=== PATIENT | male | born 1985 | race Caucasian/White ===

== ENCOUNTER 2024-04-05 07:34 | Emergency (ER) | payer OTHER, SELFPAY ==
[2024-04-05 07:35] VITALS: BP 134/93; PULSE 78; RESP 16; TEMP 35.7; O2SAT 97; BMI 23.0
--- NOTE | 2024-04-05 07:53 | ED.VIS.GI ---
HPI HPI - GI History of Present Illness Chief Complaint: Abd Pain Informant: patient Abdominal Pain/Flank Pain Onset: Days (4) Context: Gradual Onset Timing: Continuous Quality: Cramping and Sharp Location: RLQ and LLQ Worsened by: Nothing Relieved by: Nothing Nausea/Vomiting/Emesis GI Symptom: Positive for Nausea; Negative for Vomiting Diarrhea/Melena/Hematochezia GI Symptom: Positive for Diarrhea; Negative for Melena or Hematochezia Associated Symptoms Associated Symptoms: Negative for Dysuria or Frequency Narrative Narrative: Patient presents with abdominal pain and nausea that has been getting worse over the past 4 days. Patient states his came on gradually. Patient states it has been constant. Patient states the pain is mainly over the lower abdomen but worse on the right. Patient states she did take some Zofran which helped with the nausea. Patient states nothing makes the pain better nothing makes it worse. Patient describes the pain as sharp with occasional cramping at times. Patient denies any vomiting. Patient admits to some diarrhea but denies any melena or hematochezia. Patient denies any dysuria or frequency. Patient states his urine is dark and he does not know if he has hematuria. PFSH PFSH Medical History no medical history no medical history Allergy/AdvReac Type Severity Reaction Status Date / Time Penicillins Allergy Intermediate Hives Verified 04/05/24 07:36 Surgical History (Updated 04/05/24 @ 07:[address] Ambrose Villarreal DO) Hx of wisdom tooth extraction Surgical History no surgical history Social History Smoking Status: Never smoker ROS ROS ED Constitutional Constitutional ED: Reports chills; Denies fever(s) Eyes Eyes: Denies blurry vision or change in vision ENT ENT ED: Denies rhinorrhea or sore throat Cardiovascular Cardiovascular: Denies chest pain or palpitations Respiratory/Chest Respiratory/Chest: Denies cough or dyspnea Gastrointestinal Gastrointestinal: Reports abdominal pain and nausea; Denies vomiting Genitourinary Genitourinary ED: Denies dysuria or hematuria Musculoskeletal Musculoskeletal: Reports back pain; Denies neck pain Integumentary Denies abscess or rash Neurologic Neurologic: Reports headache(s); Denies weakness Allergic/Immunologic Allergic/Immunologic ED: Denies mouth swelling or urticaria EXAM Physical Exam Const Vital Signs: 04/05/24 07:35 04/05/24 09:35 Temperature 96.3 F L Temperature Source Temporal Pulse Rate 78 74 Respiratory Rate 16 16 Blood Pressure 134/93 H 128/74 H Blood Pressure Mean 106 92 Pulse Ox 97 99 Oxygen Delivery Method Room Air Room Air Positive well nourished and well developed General Appearance ED: well developed and NAD HEENT Reports moist mucous membranes normocephalic and atraumatic Neck supple and no JVD Resp normal respiratory effort and clear to auscultation bilaterally Cardio regular rate and regular rhythm GI non-distended Palpation: soft and tender epigastric (Mild), LLQ, RLQ, LUQ (Mild), RUQ (Mild), McBurney's point, periumbilical, suprapubic and Obturator sign; Negative for guarding or rebound tenderness present Extremity full ROM General Extremety ED: Negative for edema or tenderness General Extremity: Negative for edema Neuro CN's II-XII intact bilaterally, moves all extremities and no sensory deficits noted Sensorium / Orientation: alert Psych mental status grossly normal MDM MDM MDM Narrative Medical decision making narrative: Differential diagnosis includes appendicitis, ureteral calculus, gastroenteritis, pyelonephritis, urinary tract infection, and mesenteric adenitis. CBC will be obtained to assess for leukocytosis and anemia. Basic metabolic profile will be obtained to assess for electrolyte abnormality and renal function. Urinalysis will be obtained to assess for urinary tract infection and hematuria. CT scan of the abdomen pelvis will be obtained to assess for ureteral calculus, appendicitis, and bowel perforation. Lab Data Attestation: I reviewed the patient's lab results. Lab results narrative: CBC was reviewed and was within normal limits. Basic metabolic profile was reviewed and was within normal limits. Urinalysis was reviewed. There is no evidence of urinary tract infection or hematuria. Labs: Laboratory Results - last 24 hr 04/05/24 04/05/24 07:40 08:06 WBC 8.7 RBC 5.63 Hgb 15.9 Hct 46.9 MCV 83.3 MCH 28.2 MCHC 33.9 RDW Std Deviation 36.4 RDW Coeff of Jenaro 11.9 Plt Count 285 MPV 10.6 Immature Gran % (Auto) 0.500 Neut % (Auto) 68.5 Lymph % (Auto) 23.1 [place] % (Auto) 6.2 Eos % (Auto) 1.1 Baso % (Auto) 0.6 Absolute Neuts (auto) 6.0 Absolute Lymphs (auto) 2.01 Nucleated RBC % 0 Sodium 138 Potassium 4.0 Chloride 106 Carbon Dioxide 26.0 Anion Gap 6 BUN 13 Creatinine 0.89 Estim Creat Clear Calc 117.16 Est GFR (MDRD) Af Amer 123 Est GFR (MDRD) Non-Af 102 BUN/Creatinine Ratio 14.6 Glucose 106 Calcium 9.1 Urine Color Yellow Urine Clarity Clear Urine pH 7.0 Ur Specific [place] 1.010 Urine Protein 30 H Urine Glucose (UA) Normal Urine Ketones Negative Urine Occult Blood Negative Urine Nitrite Negative Urine Bilirubin Negative Urine Urobilinogen 1 H Ur Leukocyte Esterase 25 H Urine RBC 0 SEEN Urine WBC 0-5 SEEN Ur Squamous Epith Cells 0 SEEN Urine Bacteria 0 SEEN Urine Mucus 0 SEEN Radiography Diagnostic Testing: Clinical Impression(s) from Imaging Studies Abdomen/Pelvis CT 04/05/24 08:00 IMPRESSION: Moderate amount of fecal material is seen in the rectosigmoid colon. Mild left hydronephrosis although no obstructive uropathy is seen at this time. Electronically Signed: Maciel Capps MD at 10:29 EDT , CT scan of the abdomen pelvis was obtained. There is moderate amount of stool in the rectosigmoid colon. There is mild left hydronephrosis. There is no obstructive uropathy noted. There is no hydronephrosis on the right. This was interpreted by the radiologist and was also independently reviewed by myself. Additional Tests and Interventions Additional Tests or Interventions: Patient was given IV fluids, morphine, and Zofran. Patient was feeling better on reevaluation. Patient was advised of his findings. Patient was instructed use [id number] laxatives as needed for constipation. Patient was instructed to follow-up with his primary care physician in 5 to 7 days. Patient was instructed to return if worse in any way. Patient understood and was agreeable with the plan. All questions were answered. Discharge Plan Triage Chief Complaint: Abd Pain ED Provider: Ambrose Villarreal Dx/Rx/DC Orders Clinical Impression: Abdominal pain of unknown etiology, Constipation Instructions: ED Constipation (Adult), ED Abdominal Pain Unkn Cause Male... Primary Care Provider: Wes Gorman Referrals: NOT,DEFINED [Non-Staff] - Wes Gorman [Primary Care Provider] - 5-7 Days Print Language: Nigerian Disposition Disposition: Home, Self Care
--- NOTE | 2024-04-05 08:00 | CT_ITS ---
STUDY: CT ABDOMEN AND PELVIS WITH CONTRAST REASON FOR EXAM: Male, 38 years old. Back pain and abdominal pain. Nausea. RADIATION DOSAGE (If Supplied By Facility): CTDIvol = ( 14.6 ) mGy, DLP = ( 667.21 ) mGycm TECHNIQUE: Transaxial images were obtained from the dome of the diaphragm to the symphysis pubis with oral contrast. Oral and amp; IV Gastrografin and amp; 100mL Isovue-300 was administered. Sagittal and coronal images were reconstructed. Individualized dose optimization techniques were used for this CT. COMPARISON: None. FINDINGS: Minimal degree of left basilar atelectasis. The visualized portions of the heart are within normal limits. Normal liver. Normal gallbladder and extrahepatic biliary system. Normal spleen. Normal pancreas. Normal bilateral adrenal glands. Normal right kidney. Minimal degree of left hydronephrosis. No obstructive uropathy is seen at this time. Normal visualized stomach. Normal small intestine. Moderate amount of fecal material is seen in the rectosigmoid colon. The appendix is visualized and appears normal. Normal abdominal aorta. Normal inferior vena cava. Normal retroperitoneum. Normal urinary bladder. There is evidence of calcifications in the central portion of the prostate. Calcified phleboliths are seen in the pelvis. Normal abdominal wall. Normal osseous structures. CT/Abdomen/Pelvis WITH Contrast IMPRESSION: Moderate amount of fecal material is seen in the rectosigmoid colon. Mild left hydronephrosis although no obstructive uropathy is seen at this time. Electronically Signed: Maciel Capps MD at 10:29 EDT ,
[2024-04-05] MEDS: Morphine 4 MG/ML Syringe IV (08:11)
[2024-04-05] MEDS: Ondansetron 4 MG/2 ML Vial IV (08:11)
[2024-04-05] MEDS: 0.9% Normal Saline (1000mL) 1,000 ML 999 ML IV (08:12)
[2024-04-05 08:14] LABS: Bacteria 0 SEEN /hpf (None Seen); Mucous, Urine 0 SEEN /hpf (<or=2+); Red Blood Cells-Urine 0 SEEN /hpf (0-5); Squamous Epithelial Cells - UA 0 SEEN /hpf (0-5)
[2024-04-05 08:15] LABS: Color, Urine Yellow (Yellow); Glucose, Dipstick Normal (Normal); Ketone-Dipstick Negative (Negative); Leukocyte Esterase-Dipstick 25 /ul (Negative); Nitrite-Dipstick Negative (Negative); Occult Blood-Urine Negative /ul (Negative); Protein-Dipstick 30 mg/dl (Negative); Urine Bilirubin Dipstick Negative (Negative); Urine Clarity Clear (Clear); Urine Urobilinogen 1 mg/dl (Normal)
[2024-04-05 08:16] LABS: Absolute Lymphocyte Count 2.01 X10^3/uL (0.83-4.51); Basophil# 0.05 X10^3/uL; Basophil% 0.6 % (0-1); Eosinophils% 1.1 % (0-5); Hematocrit 46.9 % (40-54); Hemoglobin 15.9 g/dL (13.0-16.5); Lymphocyte # 2.01 X10^3/ul (0.83-4.51); Lymphocyte % 23.1 % (19-41); Mean Corp Hgb Conc 33.9 g/dL (32-36); Mean Corpuscular Hgb 28.2 pg (27.0-32.0); Mean Corpuscular Volume 83.3 fL (80-94); Mean Platelet Vol. 10.6 fl (6.2-12.0); Monocyte# 0.54 X10^3/uL; Monocyte% 6.2 % (0-10); NRBC Flagged by Analyzer 0 % (0-5); Neutrophil # 5.97 X10^3/uL (2.7-7.7); Neutrophil % 68.5 % (47-70); Platelet Count 285 K/mm3 (150-450); RBC Distribution Width CV 11.9 % (11.6-14.6); RBC Distribution Width SD 36.4 fl (35.1-43.9); Red Blood Count 5.63 M/mm3 (4.6-6.2); White Blood Count 8.7 K/mm3 (4.4-11.0)
[2024-04-05 08:25] LABS: White Blood Cells 0-5 SEEN /hpf (0-5)
[2024-04-05 08:29] LABS: Anion Gap 6 (5-15); BUN 13 mg/dL (7-18); BUN/Creat Ratio 14.6 RATIO (10-20); Calcium,Total 9.1 mg/dL (8.5-10.1); Chloride 106 mmol/L (98-107); Creatinine, Serum 0.89 mg/dL (0.70-1.30); EST Glomerular Filtration Rate 102 mL/min (>60); Est Glom Filt Rate - Afr Amer 123 mL/min (>60); Estimated Creatinine Clearance 117.16 ml/min; Glucose 106 mg/dL (74-106); Sodium Level 138 mmol/L (136-145)
[2024-04-05 09:35] VITALS: BP 128/74; PULSE 74; RESP 16; O2SAT 99
[2024-04-05 11:00] VITALS: BP 122/78; PULSE 64; RESP 18; O2SAT 100
== END 2024-04-05 11:23 | disposition home or self-care (01) ==
PROVIDERS: Emergency Provider Emergency Medicine; PCP Family Medicine; Visit Provider Emergency Medicine
DX: R10.9 Unspecified abdominal pain (principal); R19.7 Diarrhea, unspecified; R11.0 Nausea; K59.00 Constipation, unspecified; R51.9 Headache, unspecified; N13.30 Unspecified hydronephrosis
CPT/HCPCS: 74177; 80048; 81001; 85025; 96361; 96374; 96375; 99283; J7030; Q9967; J2405